=== PATIENT | male | born 2000 | race African-American/Black ===

== ENCOUNTER 2024-10-12 18:35 | Emergency (ER) | payer MEDICAID ==
[~2024-10-12] VITALS: Ht 180.3 cm; Wt 75.4 kg
[2024-10-12 18:41] VITALS: O2SAT 95
[2024-10-12 20:40] VITALS: TEMP 36.7
[2024-10-12 20:45] VITALS: TEMP 98.1
[2024-10-12] MEDS: ACETAMINOPHEN 325MG TABLET PO ONE (20:45)
[2024-10-12] MEDS ORDERED: IBUP-2741 MT (21:36)
[2024-10-12] MEDS ORDERED: ONDA4TAB50 MT (21:36)
[2024-10-12 21:50] VITALS: BP 139/74; PULSE 76; RESP 16; O2SAT 99
[2024-10-12] MEDS: KETOROLAC 15MG/ML VIAL IM ONE (21:50)
[2024-10-12] MEDS: ONDANSETRON 4MG ODT PO ONE (21:50)
== END 2024-10-12 21:55 | disposition home or self-care (01) ==
LOC: ER 18:35
DX: S00.33XA Contusion of nose, initial encounter (principal); S00.83XA Contusion of other part of head, initial encounter; S09.90XA Unspecified injury of head, initial encounter; Z79.899 Other long term (current) drug therapy; W21.11XA Struck by baseball bat, initial encounter; Y93.89 Activity, other specified; Y92.89 Other specified places as the place of occurrence of the external cause; Y99.8 Other external cause status
CPT/HCPCS: 70486; 99284